=== PATIENT | female | born 1990 | race Caucasian/White ===

== ENCOUNTER → 2023-04-29 13:22 | Outpatient (REF) | payer OTHER, SELFPAY | LOC: HWWDC 13:22 | PROVIDERS: ATTENDING PHYSICIAN Physician Assistant | DX: Z01.419 Encounter for gynecological examination (general) (routine) without abnormal findings (principal); Z80.3 Family history of malignant neoplasm of breast; Z12.31 Encounter for screening mammogram for malignant neoplasm of breast | CPT/HCPCS: 77063; 77067 ==

== ENCOUNTER → 2023-12-29 17:04 | Outpatient (REF) | payer OTHER, SELFPAY | LOC: DHSLP 17:04 | PROVIDERS: ATTENDING PHYSICIAN Physician Assistant | DX: G47.19 Other hypersomnia (principal); R06.83 Snoring | CPT/HCPCS: 95810 ==

== ENCOUNTER 2024-02-04 13:05 | Emergency (ER) | payer OTHER, SELFPAY ==
[2024-02-04 13:12] VITALS: BP 156/87
--- NOTE | 2024-02-04 13:17 | ED.GENMED ---
ED Provider Triage
<Darwin Bhatia PA-C - Last Filed: 02/04/24 13:19>
-
Patient seen by provider in Triage?: Seen in Triage
33-year-old female goes by the name Leonel presents with abdominal pain nausea and vomiting. He had endoscopy with colonoscopy yesterday and had multiple biopsies performed. He has a history of Crohn's disease. Today he developed abdominal pain
started feeling lightheaded had a syncopal episode per the mother. He woke up soon after. And vomited en route. He notes persistent pain to the mid and left abdomen.
Vital signs are stable. he still admits nausea. Will check labs. CT of the abdomen with IV contrast ordered given recent procedure
Medical screening examination was performed by healthcare provider at triage. He warrants further assessment
History of Present Illness
<Darwin Bhatia PA-C - Last Filed: 02/04/24 13:19>
General
Chief Complaint: Abdominal Pain
Time Seen by Provider: 02/04/24 15:32
<Jb Mcelroy PA-C - Last Filed: 02/04/24 21:21>
History of Present Illness
History of Present Illness:
33-year-old transgender male presents to the emergency department for evaluation of brief episode of upper abdominal pain that occurred after eating today. He had a colonoscopy and endoscopy performed yesterday with several biopsies performed.
Scope was performed at [facility], follows with [facility] for Crohn's. After the pain developed he had a witnessed syncopal episode, witnessed by mother. There was no postictal period however there was some concern for
myoclonic jerking after the syncope. Vomited on the way to the emergency department and since that time has felt well with exception of mild fatigue. Has no current abdominal pain at this time. Prior history of cholecystectomy.
Past History
<Darwin Bhatia PA-C - Last Filed: 02/04/24 13:19>
Past History
ED Past Medical History: Other (Crohn's)
ED Past Surgical History: Bowel resection, Cholecystectomy and Tonsilectomy
Social History
Tobacco: Non-smoker
Alcohol: None
Drug: None
Personal: Single
Living: with family
Employment: Employed
Family History
Family History: Other (Noncontributory)
Review of Systems
<Jb Mcelroy PA-C - Last Filed: 02/04/24 21:21>
Review of Systems
Allergies reviewed?: Yes
All Other Systems: ROS reviewed and negative except as documented in HPI and ROS
Phy Exam
<Jb Mcelroy PA-C - Last Filed: 02/04/24 21:21>
Physical Exam
Physical Exam:
GEN: Well appearing, NAD, WDWN
HEENT: Oral mucosa moist, no scleral icterus, no nasal congestion
Cardiac: Regular rate
Lung: No respiratory distress, no tachypnea
Abdomen: Soft, grossly nontender, no rigidity
MSK: No gross deformity or injuries
Skin: Good color, no pallor or jaundice, no rashes
Neuro: AO x3; CN II-XII grossly intact. BUE strength 5/5 in all myers, sensation intact and symmetric. BLE strength 5/5 in all myers, sensation intact and symmetric
Psych: Calm, cooperative
Course
<Darwin Bhatia PA-C - Last Filed: 02/04/24 13:19>
Orders/Labs/Results
Orders:
Orders
02/04/24 13:16
Test Result ONCE
02/04/24 13:33
Complete Blood Count/With Diff Urgent
Comprehensive Metabolic Panel Urgent
HCG, Serum Qualitative Screen Urgent
Lipase Urgent
Abnormal Lab Results
02/04/24
13:33
WBC 10.9 H 10^3/uL
(4.8-10.8)
Absolute Neuts (auto) 6.9 H 10^3/uL
(1.4-6.5)
Absolute Monos (auto) 0.9 H 10^3/uL
(0.1-0.6)
Glucose 103 H mg/dl
(70-99)
AST 75 H U/L
(14-36)
ALT 37 H U/L
(0-35)
Lipase 326 H U/L
(23-300)
02/04/24 13:33
02/04/24 13:33
Vital Signs
Initial and Last Documented VS:
Initial Vital Signs
Temp Pulse Resp BP Pulse Ox
98.1 F 100 16 156/87 99
02/04/24 13:12 02/04/24 13:12 02/04/24 13:12 02/04/24 13:12 02/04/24 13:12
Last Documented Vital Signs
Temp Pulse Resp BP Pulse Ox
98.1 F 100 16 156/87 99
02/04/24 13:12 02/04/24 13:12 02/04/24 13:12 02/04/24 13:12 02/04/24 13:12
<Jb Mcelroy PA-C - Last Filed: 02/04/24 21:21>
Orders/Labs/Results
Orders:
Orders
02/04/24 13:16
Test Result ONCE
02/04/24 13:33
Complete Blood Count/With Diff Urgent
Comprehensive Metabolic Panel Urgent
HCG, Serum Qualitative Screen Urgent
Lipase Urgent
Abnormal Lab Results
02/04/24
13:33
WBC 10.9 H 10^3/uL
(4.8-10.8)
Absolute Neuts (auto) 6.9 H 10^3/uL
(1.4-6.5)
Absolute Monos (auto) 0.9 H 10^3/uL
(0.1-0.6)
Glucose 103 H mg/dl
(70-99)
AST 75 H U/L
(14-36)
ALT 37 H U/L
(0-35)
Lipase 326 H U/L
(23-300)
02/04/24 13:33
02/04/24 13:33
Vital Signs
Initial and Last Documented VS:
Initial Vital Signs
Temp Pulse Resp BP Pulse Ox
98.1 F 100 16 156/87 99
02/04/24 13:12 02/04/24 13:12 02/04/24 13:12 02/04/24 13:12 02/04/24 13:12
Last Documented Vital Signs
Temp Pulse Resp BP Pulse Ox
98.1 F 100 16 156/87 99
02/04/24 13:12 02/04/24 13:12 02/04/24 13:12 02/04/24 13:12 02/04/24 13:12
<Jb Mcelroy PA-C - Last Filed: 02/04/24 21:21>
MDM/Problems Addressed
MDM/Problems Addressed:
At this time on my evaluation the patient has no abdominal pain. Syncopal event was likely vasovagal in the setting of acute abdominal symptoms. Labs are reassuring. Highly unlikely that this patient would have perforated abdominal viscus or
splenic injury with a completely benign abdominal exam currently. Do not see indication for imaging at this time. Discharged home in stable condition
<Jb Mcelroy PA-C - Last Filed: 02/04/24 21:21>
*Critical Care Note
Total Time (30-74mins, 75-104mins- exclusive of procedures): Not Applicable
ED Attending Note
<Darwin Bhatia PA-C - Last Filed: 02/04/24 13:19>
-
Portions of this chart may have been created with voice recognition software.� Occasional wrong word or��sound alike� substitutions may have occurred due to the inherent limitations of voice recognition software.
Discharge Plan
Departure
Patient Disposition: Home (Routine Discharge)
Date of Disposition: 02/04/24
Time of Disposition: 15:59
Patient with high blood pressure during this ER visit?: Yes
Discharge Problem:
Syncope, vasovagal
Instructions: Syncope (fainting)
Prescriptions:
No Action
fluticasone propionate 1 SPRAY spray,suspension
2 spray intranasal QPM
cetirizine [Zyrtec] 10 mg Tablet
10 mg PO QPM
Humira(CF) Pen 40 mg/0.4 mL pen injector kit
40 mg SC Q2W
testosterone 1.62 % (40.5 mg/2.5 gram) Gel In Packet
2 packet transdermal Daily
metoprolol succinate 25 mg Tablet Extended Release 24 Hr
25 mg PO DAILYPRN PRN (Reason: palpitation) Qty: 30 0RF
famotidine [Pepcid] 20 mg Tablet
20 mg PO BID
multivitamin Tablet
1 tab PO DAILY
dicyclomine 10 mg Capsule
10 mg PO QID PRN (Reason: abdominal pain) Qty: 100 0RF
pantoprazole 40 mg Tablet,Delayed Release (Dr/Ec)
40 mg PO DAILY Qty: 30 1RF
Referrals:
Joy Pace PA [Family Provider] -
Activity Restrictions/Additional Instructions:
If you have any further/worsening abdominal pain, do not hesitate to return to the ER
As you have no current abdominal pain, I do not have any concern for a perforated abdominal organ, thus do not see any indication for a CT scan
Interventions
Interventions:
*Risk Screen - Suicide Last Done: 02/04/24 13:12
*General Assessment Last Done: 02/04/24 13:12
*Neglect/Abuse Screening Last Done: 02/04/24 16:09
ED- Fall Risk Assessment Last Done: 02/04/24 16:09
*ED COVID-19 Vaccine History Last Done: 02/04/24 13:12
*Nursing Disposition Last Done: 02/04/24 16:09
TJ-Fonboe-Bcobdkvcog Assessment Last Done: 02/04/24 16:08
Discharge Date and Time
Discharge Date/Time: 02/04/24 16:10
Print Language: TUNISIAN
[2024-02-04 13:40] LABS: % Basophils 0.2 % (0-2); % Eosinophils 0.8 % (0-6); % Immature Granulocytes 0.2 % (0-0.5); % Lymphocytes 26.6 % (20.5-51.1); % Monocytes 8.5 % (1.7-9.3); % Neutrophils 63.7 % (42.2-75.2); Absolute Eosinophils 0.1 10^3/uL (0-0.7); Absolute Lymphocytes 2.9 10^3/uL (1.2-3.4); Absolute Monocytes 0.9 10^3/uL (0.1-0.6); Absolute Neutrophils 6.9 10^3/uL (1.4-6.5); Hematocrit 40.5 % (37.0-47.0); Hemoglobin 13.5 g/dL (12.0-16.0); Mean Corp Hgb Conc. 33.3 g/dL (33.0-37.0); Mean Corpuscular Volume 93.1 fL (81.0-99.0); Mean Platelet Volume 10.4 fL (7.4-10.4); Nucleated Red Blood Cells % 0 %; Platelet Count 307 10^3/uL (130-400); Red Blood Cell Count 4.35 10^6/uL (4.20-5.40); Red Cell Dist. Width 12.8 % (11.5-14.5); White Blood Cell Count 10.9 10^3/uL (4.8-10.8)
[2024-02-04 13:50] LABS: HCG, Serum Qualitative Screen Negative
[2024-02-04 13:52] LABS: ALT (SGPT) 37 U/L (0-35); AST (SGOT) 75 U/L (14-36); Albumin 4.6 g/dl (3.5-5.0); Alkaline Phosphatase 50 U/L (38-126); Blood Urea Nitrogen 12 mg/dl (7-17); Carbon Dioxide 24 mmol/L (22-30); Chloride 106 mmol/L (98-107); Glucose 103 mg/dl (70-99); Lipase 326 U/L (23-300); Potassium 3.8 mmol/L (3.5-5.1); Sodium 141 mmol/L (135-145); Total Bilirubin 1.2 mg/dl (0.2-1.3); Total Protein 7.6 g/dl (6.3-8.2); eGFR > 60.00
== END 2024-02-04 16:10 | disposition home or self-care (01) ==
LOC: EMR 13:05
PROVIDERS: Physician Assistant; EMERGENCY PHYSICIAN Emergency Medicine; FAMILY PHYSICIAN Physician Assistant
DX: R55 Syncope and collapse (principal); K50.90 Crohn's disease, unspecified, without complications; Z90.49 Acquired absence of other specified parts of digestive tract
CPT/HCPCS: 99283; 80053; 83690; 84703; 85025